=== PATIENT | female | born 1940 | race Caucasian/White ===

== ENCOUNTER → 2017-07-02 | Outpatient (CLI) | payer OTHER, MEDICARE ==
[~2017-07-02] MED LIST: ARICEPT 5 MG TAB5 MG PO; CELEBREX 200 M200 MG PO; CITRACAL + BON1 EACH PO; CITRUCEL500 MG PO; EYE HEALTH ADU1 EACH PO; FLUOXETINE HCL20 M1 PO; FREESTYLE LANC1 EACH; FREESTYLE LITE1 EAC2; GLUCOPHAGE XR750 MG PO; LIPITOR10 MG PO; LISINOPRIL5 MG PO; NEURONTIN100 MG PO; NORVASC5 MG PO; PROBIOTIC1 EAC1 PO; TRAMADOL 50 MG50 MG PO; ZYRTEC10 MG PO
[2017-07-02 13:57] LABS: BASOPHILS 0.6 % (0.0-2.0); EOSINOPHILS 2.9 % (0.0-3.0); HEMATOCRIT 37.7 % (37.0-47.0); HEMOGLOBIN 12.3 gm/dL (12.0-15.0); LYMPHOCYTES 14.8 % (24.0-44.0); MCH 27.6 pg (26.0-34.0); MCHC 32.6 g/dL (28.0-37.0); MCV 84.7 fL (80.0-100.0); MONOCYTES 4.8 % (1.0-8.0); PLATELET COUNT 300 thou/uL (150-400); POLYS 76.9 % (36.0-66.0); RBC 4.45 mil/uL (4.20-5.00); RDW 14.9 % (10.5-14.5); WBC 10.5 thou/uL (4.0-11.0)
[2017-07-02 14:13] LABS: ALBUMIN 3.7 g/dL (3.4-5.0); CALCIUM 10.1 mg/dL (8.5-10.1); CREATININE 0.9 mg/dL (0.6-1.0); MAGNESIUM 1.7 mg/dL (1.8-2.4); POTASSIUM 3.9 mmol/L (3.5-5.1); TOTAL BILIRUBIN 0.4 mg/dL (<0.1-1.0); TOTAL PROTEIN 7.3 g/dL (6.4-8.2)
== END ==
LOC: SEN 09:32
PROVIDERS: Registered Nurse
DX: I10 Essential (primary) hypertension (principal); E11.9 Type 2 diabetes mellitus without complications; J31.0 Chronic rhinitis

== ENCOUNTER → 2017-07-14 | Outpatient (CLI) | payer OTHER, MEDICARE | LOC: SEN 08:51 | DX: I10 Essential (primary) hypertension (principal) ==

== ENCOUNTER → 2017-11-25 | Outpatient (CLI) | payer OTHER, MEDICARE | LOC: BC 02:04 | DX: Z12.31 Encounter for screening mammogram for malignant neoplasm of breast (principal) ==

== ENCOUNTER → 2017-12-24 | Outpatient (CLI) | payer OTHER, MEDICARE ==
[~2017-12-24] VITALS: Ht 160 cm; Wt 68.7 kg
[2017-12-24 11:52] VITALS: BP 107/54
== END ==
LOC: SEN 10:23
DX: Z09 Encounter for follow-up examination after completed treatment for conditions other than malignant neoplasm (principal); I10 Essential (primary) hypertension; E78.5 Hyperlipidemia, unspecified; E11.9 Type 2 diabetes mellitus without complications; Z79.899 Other long term (current) drug therapy

== ENCOUNTER → 2018-03-17 | Outpatient (CLI) | payer OTHER, MEDICARE ==
[2018-03-17 10:38] VITALS: BP 113/60
== END ==
LOC: SEN 08:36
DX: E11.40 Type 2 diabetes mellitus with diabetic neuropathy, unspecified (principal); G47.30 Sleep apnea, unspecified; R79.89 Other specified abnormal findings of blood chemistry; I10 Essential (primary) hypertension; E78.5 Hyperlipidemia, unspecified

== ENCOUNTER → 2018-05-05 | Outpatient (CLI) | payer OTHER, MEDICARE | LOC: SEN 09:09 | DX: R79.89 Other specified abnormal findings of blood chemistry (principal) ==

== ENCOUNTER → 2018-06-25 | Outpatient (CLI) | payer OTHER, MEDICARE ==
[2018-06-25 12:12] LABS: CHOLESTEROL 164 mg/dL (<200); HDL CHOLESTEROL 98 mg/dL (>40); LDL CHOLESTEROL 62 mg/dL (<100); TC:HDL 1.7 Ratio (Not establshd); TRIGLYCERIDE 20 mg/dL (<150); VLDL 4 mg/dL (<40)
== END ==
LOC: SEN 10:35
PROVIDERS: Nurse Practitioner Family
DX: J06.9 Acute upper respiratory infection, unspecified (principal); I10 Essential (primary) hypertension; E11.42 Type 2 diabetes mellitus with diabetic polyneuropathy; E78.5 Hyperlipidemia, unspecified